=== PATIENT | female | born 1995 ===

== ENCOUNTER 2017-08-04 02:21 | Emergency (ER) | payer BC ==
[~2017-08-04] VITALS: Ht 167.6 cm; Wt 72.0 kg
[2017-08-04 02:27] VITALS: TEMP 36.4; Ht 167.6 cm; Wt 72.0 kg
[2017-08-04 03:11] LABS: BASO % 0.3 %; BASO ABS # 0.02 K/uL (0-0.2); EOS ABS # 0.07 K/uL (0-0.5); HEMOGLOBIN 13.8 g/dL (12.0-16.0); IG# 0.01 K/uL (0.00-0.02); LYMPH ABS # 2.47 K/uL (1.2-3.4); MEAN CELL VOLUME 85.5 fL (80-100); MEAN CORPUSCULAR HEMOGLOBIN 29.5 pg (25-34); MEAN CORPUSCULAR HGB CONC 34.5 g/dl (32-36); MONO % 7.2 %; MONO ABS # 0.51 K/uL (0.11-0.59); NEUT % 56.4 %; NEUT ABS # 3.97 K/uL (1.4-6.5); PLATELET COUNT 195 K/uL (130-400); WHITE BLOOD COUNT 7.05 K/uL (4.8-10.8)
[2017-08-04 03:32] LABS: CALCIUM 9.3 mg/dl (8.5-10.1); CREATININE 0.75 mg/dl (0.60-1.20); POTASSIUM 3.3 mmol/L (3.5-5.1)
[2017-08-04 03:34] LABS: TOTAL PROTEIN 7.8 gm/dl (6.4-8.2)
[2017-08-04 04:01] VITALS: BP 129/64; PULSE 87; O2SAT 95
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
== END 2017-08-04 04:02 | disposition home or self-care (01) ==
LOC: C.EDB 02:24 → C.EDA 04:02
DX: F10.929 Alcohol use, unspecified with intoxication, unspecified (principal)